=== PATIENT | female | born 1945 | race Caucasian/White ===

== ENCOUNTER 2023-10-10 09:28 | Inpatient (IN) | payer MEDICARE, SELFPAY ==
[2023-10-10] VITALS (32 sets, daily range): BP systolic 100–164; BP diastolic 54–94; PULSE 85–127; RESP 18–38; TEMP 36.1–36.3; O2SAT 95–100; BMI 18.1
--- NOTE | 2023-10-10 | ECHO_ITS ---
Patient Info Name: Rachna Alcazar Age: 77 years : 1945 Gender: Female Ht: 50 in Wt: 93 lbs BSA: 1.24 m2 HR: 89 bpm BP: 126 / 57 mmHg Heart Rhythm: Sinus Rhythm Technical Quality: Fair Exam Date: 10/10/2023 2:47 PM Exam Location: Echo Lab Patient Status: Outpatient Admit Date: 10/10/2023 Staff Ordering Physician: Kate Delgadillo APRN Institutional Commodity Analyst: Ann Roca RDCS Attending Provider: Iza Mccloud MD Referring Physician: Elie ALMANZAR; Exam Type: CA echo doppler color flow Study Info Indications - Elevated BNP Complete two-dimensional, color flow and Doppler transthoracic echocardiogram is performed. Summary 1. Technically difficult study with limited views. 2. Left ventricular chamber dimension is normal. 3. Left ventricular systolic function is hyperdynamic, estimated at >70%. 4. The left ventricular diastolic function is grade I diastolic dysfunction. 5. Right ventricular systolic function is normal. 6. Left atrial chamber dimension is moderately enlarged. 7. There is trace mitral valve regurgitation. 8. There is trace tricuspid valve regurgitation. Left Ventricle Left ventricular chamber dimension is normal. Left ventricular systolic function is hyperdynamic, estimated at >70%. The left ventricular diastolic function is grade I diastolic dysfunction. Right Ventricle Right ventricular chamber dimension is normal. Right ventricular systolic function is normal. Left Atria Left atrial chamber dimension is moderately enlarged. Right Atria Right atrial chamber dimension is normal. Aortic Valve The aortic valve is not well visualized. There is no aortic valve stenosis. There is no aortic valve regurgitation. Pulmonic Valve The pulmonic valve is not well visualized. Mitral Valve There is trace mitral valve regurgitation. The mitral valve annulus is severely calcified. Tricuspid Valve There is trace tricuspid valve regurgitation. Pericardium/Pleural There is no pericardial effusion. Inferior Vena Cava Normal inferior vena cava with >50% collapse upon inspiration consistent with normal right atrial pressure, 3 mmHg. Aorta The aortic root size at the sinus of Valsalva is not well visualized. Tricuspid Valve Name Value Normal Estimated PAP/RSVP RA Pressure 3 mmHg <=5 Report Signatures
--- NOTE | ~2023-10-10 | US_ITS ---
EXAMINATION: US abdomen complete DATE: 10/12/2023 08:17 INDICATION: Hepatosplenomegaly TECHNIQUE: Multiple grayscale and Doppler ultrasound images of the abdomen were obtained. COMPARISON: None FINDINGS: The pancreatic head and body are normal in appearance. The pancreatic tail is not visualized. The pr oximal to mid aorta and inferior vena cava are normal. Liver has normal echogenicity and contour, wit h a smooth surface. No liver lesion identified. No intrahepatic biliary duct dilation suspected. Port al venous flow was seen in the hepatopetal, normal direction and has normal Doppler waveform. There i s a shadowing gallstone within the normal-appearing gallbladder. The common bile duct measures 4 mm, which is normal. Sonographic Valenzuela sign was reported as negative by the arnp. There is normal renal contour and echogenicity bilaterally. The right kidney measures 9.5 x 3.2 x 3.8 cm and the lef t 9.1 x 3.4 x 4.3 cm. There is diffuse increased echogenicity at both kidneys which can be seen with medical renal disease. 2.0 cm anechoic right renal cyst. There is no hydronephrosis. There are few p unctate calcifications likely sequela of old granulomatous disease within the normal sized spleen whi ch measures 10.2 cm in maximal length. IMPRESSION: 1. Cholelithiasis. 2. Diffuse increased parenchymal echogenicity at both kidneys which can be seen with medical renal di sease. Reviewed, dictated and finalized at location A. IMPRESSION: 1. Cholelithiasis. 2. Diffuse increased parenchymal echogenicity at both kidneys which can be seen with medical renal disease.
--- NOTE | ~2023-10-10 | XR_ITS ---
EXAMINATION: XR chest 1V portable DATE: 10/10/2023 10:22 INDICATION: Shortness of breath TECHNIQUE: frontal view of the chest was obtained. COMPARISON: None FINDINGS: Asymmetric left-sided predominant diffuse increased interstitial pattern throughout both lungs. In ad dition there are some patchy groundglass opacities in the perihilar and lower left lung. No pleural e ffusion or pneumothorax. Heart size is normal. Calcified right hilar and mediastinal lymph nodes cons istent with old granulomatous disease. Lower thoracic vertebroplasty. Thoracolumbar levocurvature wit h severe spondylosis. IMPRESSION: 1. Left-sided predominant diffuse increased interstitial pattern with some additional patchy groundgl ass opacities in the left lung which could represent asymmetric pulmonary edema and/or pneumonia. Reviewed, dictated and finalized at location A. IMPRESSION: 1. Left-sided predominant diffuse increased interstitial pattern with some rowena tional patchy groundglass opacities in the left lung which could represent asym metric pulmonary edema and/or pneumonia.
--- NOTE | 2023-10-10 09:32 | ED.SOB ---
HPI - SOB/Dyspnea General Chief Complaint: Shortness of Breath/Dyspnea Stated Complaint: SOB,ON CPAP Time Seen by Provider: 10/10/23 09:30 History of Present Illness HPI Narrative: 77-year-old female presents to the emergency department for evaluation for worsening shortness breath. Patient does have history of COPD. Patient was complaining of increased shortness of breath this morning. Patient was found to be in respiratory distress and hypoxic at the [facility]. Patient was placed on 5 L by a non-rebreather but was still having poor saturations. Patient was placed on CPAP by EMS and transported to [facility]. Upon arrival emergency department patient was alert after being on CPAP. Patient was transitioned to BiPAP. Related Data Home Medications Medication Instructions Recorded Confirmed aspirin 81 mg chewable tablet 81 mg PO DAILY 10/10/23 10/10/23 (Monserrat Chewable Low Dose Aspirin) atorvastatin 40 mg tablet 40 mg PO DAILY 10/10/23 10/10/23 famotidine 20 mg tablet 20 mg PO DAILY 10/10/23 10/10/23 fluticasone fur. 100 mcg-umeclid inhalation 10/10/23 62.5 mcg-vilant 25 mcg inhalat.powder (Trelegy Ellipta) folic acid 1 mg tablet 1 mg PO DAILY 10/10/23 10/10/23 lisinopril 40 mg tablet 40 mg PO DAILY 10/10/23 10/10/23 melatonin 5 mg tablet 5 mg PO HS 10/10/23 10/10/23 naloxegol 25 mg tablet (Movantik) 25 mg PO QAM 10/10/23 10/10/23 pantoprazole 40 mg tablet,delayed 40 mg PO BID 10/10/23 10/10/23 release polyethylene glycol 3350 17 17 g PO DAILY 10/10/23 10/10/23 gram/dose oral powder (Miralax) tizanidine 2 mg tablet 2 mg PO DAILY 10/10/23 10/10/23 tramadol 50 mg tablet 50 mg PO Q6H 10/10/23 10/10/23 Allergies Allergy/AdvReac Type Severity Reaction Status Date / Time hydrocodone Allergy Unknown Verified 10/10/23 09:50 Review of Systems Review of Systems: All systems reviewed & are unremarkable except as noted in HPI and below PMFSH Past Medical History Medical History (Updated 10/10/23 @ 17:57 by Kate Delgadillo APRN) Anemia COPD (chronic obstructive pulmonary disease) Former smoker GERD (gastroesophageal reflux disease) HTN (hypertension) Insomnia Rheumatoid arthritis Exam Narrative: APPEARANCE: Well appearing, no pain, no distress, well-nourished. HEAD: normocephalic, atraumatic. EYES: PERRLA/EOMI, conjunctivae clear. NOSE: Normal no drainage EARS:TMS clear with good light reflex. THROAT: Pharynx clear, no exudate. NECK: Supple. No adenopathy, no masses. RESPIRATORY: Rhonchi and wheeze bilaterally CARDIOVASCULAR: Regular rate and rhythm without murmurs rubs or gallops. ABDOMINAL: Soft, nontender, nondistended, normal bowel sounds MUSCULOSKELETAL: Moves all extremities. Strength/ROM intact, No edema, No calf tenderness. NEURO: Alert. Cranial nerves II through XII intact. Grossly intact SKIN: Warm, dry. Normal Color Hemoccult negative on the digital rectal exam Course Course Emergency Course: Patient was admitted to IMU on BiPAP and treated for pneumonia. Vital Signs Vital signs: Vital Signs Temperature 97.4 F L 10/10/23 09:25 Pulse Rate 127 H 10/10/23 09:25 Respiratory Rate 30 H 10/10/23 09:25 Blood Pressure 152/94 H 10/10/23 09:25 Pulse Oximetry 95 10/10/23 09:25 Oxygen Delivery BiPAP 10/10/23 09:25 Oxygen Flow Rate 5 10/10/23 09:25 Fraction of Inspired Oxygen 50 10/10/23 09:25 Temperature 97.4 F L 10/10/23 09:25 Pulse Rate 104 H 10/10/23 16:39 Respiratory Rate 29 H 10/10/23 16:06 Blood Pressure 115/75 10/10/23 16:39 Pulse Oximetry 97 10/10/23 16:06 Oxygen Delivery BiPAP 10/10/23 16:06 Oxygen Flow Rate 5 10/10/23 09:30 Fraction of Inspired Oxygen 35 10/10/23 14:01 MDM - SOB/Dyspnea MDM Narrative Medical decision making narrative: 69-year-old female presented emergency department for evaluation of worsening shortness of breath. X-rays concerning for pulmonary edema and for pneumonia. Patient is afebril
[2023-10-10 09:57] LABS: Alveolar/Arterial O2 Gradient 239.3 mmHg; Base Excess ABG -8.7 mEq/l (+/-2.0); Device NON-INVASIVE VENT; Fractional Inspired Oxygen 50 %; Modified Allen's Test Pass; Non-Invasive Expiratory Pressure 7 CMH2O; Non-Invasive Inspiratory Pressure 14 CMH2O; Non-Invasive Vent Rate 14 /MIN; Oxygen Content ABG 12.3 %vol (16.0-22.0); Oxygen Saturation ABG 95.9 % (95.0-100.0); Oxyhemoglobin 94.2 % THb (90.0-100.0); PO2 ABG 83.5 mmHg (80.0-100.0); PO2 FiO2 Ratio Arterial Blood 1.67 %; Site Drawn RIGHT RADIAL; Total Hemoglobin 9.2 g/dL (12.0-18.0); pH ABG 7.345 (7.350-7.450)
[2023-10-10 11:00] LABS: Basophils Percent Auto 0.1 % (0.2-1.2); Hematocrit 22.7 % (37.0-47.0); Hemoglobin 7.2 g/dL (12.0-15.0); Immature Granulocyte Absolute 0.07 K/mm3 (0.00-0.031); Immature Granulocyte Percent A 0.9 % (0-0.5); Immature Platelet Fraction Pct 9.7 % (0.9-11.2); Lymphocytes Absolute Auto 0.47 K/mm3 (0.9-3.2); Mean Corpuscular HGB Conc 31.7 g/dl (32-36); Mean Corpuscular Hemoglobin 29.9 pg (26-34); Mean Corpuscular Volume 94.2 fl (80-100); Mean Platelet Volume 11.6 fl (7.4-10.4); Monocytes Absolute Auto 0.4 K/mm3 (0.1-0.6); Monocytes Percent Auto 5.5 % (2.6-8.5); Neutrophils Absolute Auto 6.9 K/mm3 (1.3-6.7); Neutrophils Percent Auto 87.5 % (45.5-73.1); Red Blood Count 2.41 M/mm3 (4.2-5.4); Red Cell Distribution Width 15.4 % (11.5-14.5); White Blood Count 7.8 K/mm3 (4.5-10.0)
[2023-10-10 11:04] LABS: Alanine Aminotransferase 10 U/L (6-35); Albumin Level 4.2 g/dL (3.5-5.1); Alkaline Phosphatase 111 U/L (38-126); Anion Gap 13 mmol/L (4-12); Aspartate Amino Transferase 16 U/L (14-36); Bilirubin,Total 0.7 mg/dL (0.2-1.3); Blood Urea Nitrogen 21 mg/dL (7-17); Calcium 8.3 mg/dL (8.4-10.2); Carbon Dioxide 18 mmol/L (22-30); Chloride 107 mmol/L (98-107); Estimated Glomerular Filt Rate 36; Glucose 194 mg/dL (65-110); Potassium 3.7 mmol/L (3.4-5.0); Sodium 138 mmol/L (137-145)
[2023-10-10 11:05] LABS: Lactic Acid Reflex 2.9 mmol/L (0.7-2.0)
[2023-10-10 11:07] LABS: Partial Thromboplastin Time 26.5 Seconds (22.3-36.8); Prothrombin Time 13.9 Seconds (11.1-14.7)
[2023-10-10 11:12] LABS: NT Pro B Type Natriuretic Pept 3470 pg/mL (19.9-100)
[2023-10-10] MEDS: AZITHROMYCIN 500 MG/NS 250 ML 500 MG/250 ML BAG 250 MG IVPB (11:19)
[2023-10-10 11:24] LABS: Appearance Urine Clear (Clear); Bacteria Urine None Seen /hpf; Bilirubin Urine Negative (Negative); Blood Urine 1+ (Negative); Color Urine Yellow (Yellow); Glucose Urine UA Negative (Negative); Ketones Urine Negative (Negative); Leukocyte Esterase Ur Trace LEU/UL (Negative); Need Manual Microscopic Reviewed; Nitrate Urine Negative (Negative); Protein Urine 3+ mg/dL (Negative); Specific Grav Ur 1.018 (1.001-1.035); Squamous Epithelial Cell Urine None Seen /hpf (Few); pH Urine 5.5 (5.0-9.0)
[2023-10-10 11:26] LABS: Add Urine Microscopic? YES
[2023-10-10 11:44] LABS: Platelet Count Result 69 k/mm3 (150-375)
[2023-10-10 11:45] LABS: Platelet Estimate Decreased (Adequate)
[2023-10-10 11:46] LABS: Helmet Cells 1+; Hypochromasia 1+; Poikilocytosis 1+; Schistocytes 1+
--- NOTE | 2023-10-10 12:50 | PM.IMHP ---
H&P: HPI History of Present Illness Date/Time: 10/10/23 16:53 Chief Complaint: Shortness of Breath, Hypoxia Narrative: 77 y/o F presents here with shortness of breath and hypoxia with PMH of COPD (recent dx in the last year), former smoker (cessation 1 year ago), anemia (getting weekly injections, unclear what), RA, insomnia, GERD, and HTN. Patient presents here via EMS from [facility] with shortness of breath. Has been at [facility] for the past 2 weeks after she broke her left hip, which required surgical management. Prior to that she was at [facility] for the past year. Patient began feeling short of breath this morning. She had just finished breakfast and went to lay down when she started coughing, experiencing chest congestion, and then became acutely short of breath. Cough was productive. Reports she has been feelings generally unwell starting today without specific findings until episode after breakfast. Patient reports her morning vitals were normal and her sat was 95% on RA. No prior history of supplemental O2 or sleep apnea. EMS was called and upon their arrival patient was found to have a sat in the 70's. Patient was placed on a NRB without improvement. Then transitioned to CPAP with improvement in distress and O2 sats - 90's. Patient exchanged to BiPAP upon arrival to ED and sat has maintained between 95-99%. Patient endorses rhinorrhea, cough, shortness of breath and chest congestion. Denying chest pain, palpitations, fever, body aches, or chills. Initial VS at presentation: 97.4? F, HR 127, RR 30, 152/94, and 95% on BiPAP. ED workup showed: no leukocytosis, hemoglobin 7.2, platelet count 69, creatinine 1.4, gap 13, lactic 2.9, BNP 3470. UA equivocal. CXR showed left-sided predominant diffuse interstitial pattern with some additional patchy ground-glass opacities in left lung (edema v pna). Review of Systems Review of Systems: All systems reviewed & are unremarkable except as noted in HPI and below PMFSH Past Medical History Medical History (Updated 10/10/23 @ 17:57 by Kate Delgadillo, STACIA) Anemia COPD (chronic obstructive pulmonary disease) Former smoker GERD (gastroesophageal reflux disease) HTN (hypertension) Insomnia Rheumatoid arthritis Meds Home Medications and Allergies Home Medications Medication Instructions Recorded Confirmed Type aspirin 81 mg chewable tablet 81 mg PO DAILY 10/10/23 10/10/23 History (Monserrat Chewable Low Dose Aspirin) atorvastatin 40 mg tablet 40 mg PO DAILY 10/10/23 10/10/23 History famotidine 20 mg tablet 20 mg PO DAILY 10/10/23 10/10/23 History fluticasone fur. 100 mcg-umeclid inhalation 10/10/23 History 62.5 mcg-vilant 25 mcg inhalat.powder (Trelegy Ellipta) folic acid 1 mg tablet 1 mg PO DAILY 10/10/23 10/10/23 History lisinopril 40 mg tablet 40 mg PO DAILY 10/10/23 10/10/23 History melatonin 5 mg tablet 5 mg PO HS 10/10/23 10/10/23 History naloxegol 25 mg tablet (Movantik) 25 mg PO QAM 10/10/23 10/10/23 History pantoprazole 40 mg tablet,delayed 40 mg PO BID 10/10/23 10/10/23 History release polyethylene glycol 3350 17 17 g PO DAILY 10/10/23 10/10/23 History gram/dose oral powder (Miralax) tizanidine 2 mg tablet 2 mg PO DAILY 10/10/23 10/10/23 History tramadol 50 mg tablet 50 mg PO Q6H 10/10/23 10/10/23 History Allergies Allergy/AdvReac Type Severity Reaction Status Date / Time hydrocodone Allergy Unknown Verified 10/10/23 09:50 Vital Signs Vital Signs - 24 hr 10/10/23 09:25 10/10/23 09:51 10/10/23 09:30 Temperature 97.4 F L Pulse Rate 127 H 111 H Respiratory Rate 30 H 27 H Blood Pressure 152/94 H Pulse Oximetry 95 98 98 Oxygen Delivery BiPAP BiPAP BiPAP Oxygen Flow Rate 5 5 Fraction of Inspired Oxygen 50 50 10/10/23 10:04 10/10/23 10:37 10/10/23 11:01 Temperature Pulse Rate 103 H 99 95 Respiratory Rate 24 H 29 H 24 H Blood Pressure 128/74 106/63 100/54 L Pulse Oximetry 99 98 98 Oxygen Delivery Oxygen F
[2023-10-10 13:35] LABS: Procalcitonin 0.1 ng/mL
[2023-10-10 13:51] LABS: Reflex Lactic Acid Yes or No Add Lactic
[2023-10-10] MEDS: ALBUTEROL SULFATE NEB 2.5 MG/3 ML INH INHALATION (14:31)
[2023-10-10 14:38] LABS: MRSA (PCR) NOT DETECTED (NOT DETECTE)
[2023-10-10 16:48] LABS: Lactic Acid 1.5 mmol/L (0.7-2.0)
[2023-10-10 16:55] LABS: Iron 52 ug/dL (37-170)
[2023-10-10 17:04] LABS: Percent Iron Saturation 28 % (20-50)
[2023-10-10 18:02] LABS: Folic Acid > 20.0 ng/mL (2.76->20)
[2023-10-10] MEDS: predniSONE 20 MG TABLET 40 MG PO (19:00)
[2023-10-10] MEDS: traMADol HCL (*CRX) 50 MG TABLET PO ×2 (19:00→23:24)
[2023-10-10] MEDS: IPRATROPIUM 0.5 MG/ALBUTEROL SULFATE 2.5 MG AMPUL.NEB 3 ML INHALATION (20:09)
[2023-10-10] MEDS: FLUTICASONE PROP 110 MCG INHALER 12 GM (*SP) 2 PUFF INHALATION (20:09)
[2023-10-10] MEDS: MELATONIN 5 MG TABLET PO (20:56)
[2023-10-10] MEDS: LACTATED RINGERS 1,000 ML 100 ML (23:33)
[2023-10-11] VITALS (26 sets, daily range): BP systolic 80–175; BP diastolic 44–97; PULSE 78–104; RESP 16–22; TEMP 36.1–37.2; O2SAT 95–100; BMI 19.2
[2023-10-11] MEDS: IPRATROPIUM 0.5 MG/ALBUTEROL SULFATE 2.5 MG AMPUL.NEB 3 ML INHALATION ×4 (02:11→20:48)
[2023-10-11 05:01] LABS: Immature Granulocyte Absolute 0.02 K/mm3 (0.00-0.031); Immature Granulocyte Percent A 0.9 % (0-0.5); Immature Platelet Fraction Pct 8.2 % (0.9-11.2); Lymphocytes Absolute Auto 0.28 K/mm3 (0.9-3.2); Lymphocytes Percent Auto 13.1 % (18.3-44.2); Mean Corpuscular HGB Conc 31.5 g/dl (32-36); Mean Corpuscular Hemoglobin 29.7 pg (26-34); Mean Corpuscular Volume 94.3 fl (80-100); Mean Platelet Volume 12.9 fl (7.4-10.4); Monocytes Absolute Auto 0.1 K/mm3 (0.1-0.6); Monocytes Percent Auto 4.7 % (2.6-8.5); Neutrophils Absolute Auto 1.7 K/mm3 (1.3-6.7); Neutrophils Percent Auto 81.3 % (45.5-73.1); Platelet Count Result 56 k/mm3 (150-375); Red Blood Count 2.09 M/mm3 (4.2-5.4); Red Cell Distribution Width 15.6 % (11.5-14.5); White Blood Count 2.1 K/mm3 (4.5-10.0)
[2023-10-11 05:16] LABS: Alanine Aminotransferase 11 U/L (6-35); Albumin Level 4.2 g/dL (3.5-5.1); Alkaline Phosphatase 105 U/L (38-126); Anion Gap 11 mmol/L (4-12); Aspartate Amino Transferase 17 U/L (14-36); Bilirubin,Total 0.6 mg/dL (0.2-1.3); Blood Urea Nitrogen 26 mg/dL (7-17); Calcium 8.7 mg/dL (8.4-10.2); Carbon Dioxide 17 mmol/L (22-30); Chloride 108 mmol/L (98-107); Estimated CRCL calculation 21 ml/min; Estimated Glomerular Filt Rate 36; Glucose 149 mg/dL (65-110); Potassium 3.9 mmol/L (3.4-5.0); Sodium 136 mmol/L (137-145)
[2023-10-11 05:35] LABS: Hemoglobin 6.2 g/dL (12.0-15.0)
[2023-10-11 05:36] LABS: Hematocrit 19.7 % (37.0-47.0); Platelet Estimate Decreased (Adequate)
[2023-10-11 05:37] LABS: Anisocytosis 2+; Burr Cells 2+; Hypochromasia 1+; Poikilocytosis 2+; Schistocytes 1+
[2023-10-11] MEDS: traMADol HCL (*CRX) 50 MG TABLET PO ×3 (06:22→21:06)
[2023-10-11] MEDS: ASPIRIN 81 MG CHEWABLE TABLET PO (08:40)
[2023-10-11] MEDS: predniSONE 20 MG TABLET 40 MG PO (08:40)
[2023-10-11] MEDS: polyethylene glycoL 3350 17 GM POWD.PACK PO (08:40)
[2023-10-11] MEDS: PANTOPRAZOLE 40 MG TABLET PO ×2 (08:40→21:09)
[2023-10-11] MEDS: FOLIC ACID 1 MG TABLET PO (08:40)
[2023-10-11] MEDS: FAMOTIDINE 20 MG TABLET PO (08:40)
[2023-10-11] MEDS: ATORVASTATIN 40 MG TABLET PO (08:41)
[2023-10-11] MEDS: AZITHROMYCIN 500 MG/NS 250 ML 500 MG/250 ML BAG 250 MG IVPB (08:41)
[2023-10-11] MEDS: TIZANIDINE HCL 2 MG TABLET PO (08:41)
[2023-10-11] MEDS: lisinopriL 20 MG TABLET 40 MG PO (08:41)
--- NOTE | 2023-10-11 12:03 | PM.IMPN ---
Progress Note: A&P Assessment and Plan (1) Sepsis: Code(s): A41.9 - Sepsis, unspecified organism Status: Acute Assessment and Plan: - suspected source: PNA - started on ceftriaxone and azithromycin on 10/09 - blood cultures drawn on 10/09 - UA: 3+ protein, 1+ blood, trace leuks, 6-10 rbc's, 6-10 wbc's, no epithelial cells, no bacteria. UC obtained on 10/09. - CXR: ?Left-sided predominant diffuse increased interstitial pattern with some additional patchy groundglass opacities in the left lung which could represent asymmetric pulmonary edema and/or pneumonia. - on BIPAP (2) Shortness of breath: Code(s): R06.02 - Shortness of breath Status: Acute Assessment and Plan: - CXR showing pna v pulmonary edema - started on abx for CAP - on duonebs and BIPAP (3) Pneumonia: Code(s): J18.9 - Pneumonia, unspecified organism Status: Acute Assessment and Plan: - CXR: patchy groundglass opacities in the left lung - risk factors: resides at [facility], reviewed external med rec and no recent abx - complicating factors: COPD, former smoker, recent intubation in last month for surgical fixation of hip fx. - started on CAP tx: ceftriaxone and azithromycin on 10/09, if no improvement consider cefepime for HAP coverage. (4) Anemia: Code(s): D64.9 - Anemia, unspecified Status: Acute Assessment and Plan: - Hgb is 6 - tranfuse blood - GI and hematology consulted Subjective Date/time seen: 10/11/23 12:03 Interval history: 77 y/o F presents here with shortness of breath and hypoxia with PMH of COPD (recent dx in the last year), former smoker (cessation 1 year ago), anemia (getting weekly injections, unclear what), RA, insomnia, GERD, and HTN. Patient is severe anemic hb is 6 today ordered 3 units of blood GI and hematology consult Review of Systems Review of Systems: pale tired and weak Objective Data Vital Signs Vital Signs: Vital Signs - 24 hr 10/10/23 12:07 10/10/23 12:31 10/10/23 13:01 Temperature Pulse Rate 97 85 89 Respiratory Rate 24 H 20 20 Blood Pressure 108/61 126/57 L Pulse Oximetry 96 100 100 Oxygen Delivery BiPAP Oxygen Flow Rate Fraction of Inspired Oxygen 10/10/23 13:49 10/10/23 13:02 10/10/23 13:31 Temperature Pulse Rate 91 86 91 Respiratory Rate 29 H 20 20 Blood Pressure 124/57 L 136/61 Pulse Oximetry 98 100 97 Oxygen Delivery BiPAP Oxygen Flow Rate Fraction of Inspired Oxygen 10/10/23 14:01 10/10/23 14:15 10/10/23 14:33 Temperature Pulse Rate 93 96 Respiratory Rate 28 H 27 H Blood Pressure Pulse Oximetry 98 Oxygen Delivery BiPAP Oxygen Flow Rate Fraction of Inspired Oxygen 35 10/10/23 14:40 10/10/23 14:01 10/10/23 14:31 Temperature Pulse Rate 94 90 97 Respiratory Rate 22 H 22 H 22 H Blood Pressure 164/69 H 137/56 L 164/69 H Pulse Oximetry 97 100 100 Oxygen Delivery Oxygen Flow Rate Fraction of Inspired Oxygen 10/10/23 16:06 10/10/23 15:48 10/10/23 18:00 Temperature Pulse Rate 104 H 98 Respiratory Rate 29 H 38 H Blood Pressure 115/75 Pulse Oximetry 97 99 Oxygen Delivery BiPAP Oxygen Flow Rate Fraction of Inspired Oxygen 10/10/23 20:10 10/10/23 20:15 10/10/23 20:23 Temperature Pulse Rate 90 92 Respiratory Rate 18 20 Blood Pressure Pulse Oximetry 96 Oxygen Delivery Nasal Cannula Oxygen Flow Rate 2 Fraction of Inspired Oxygen 10/10/23 20:32 10/10/23 20:00 10/10/23 20:00 Temperature 36.1 C L Pulse Rate 105 H 96 Respiratory Rate 38 H Blood Pressure 114/90 Pulse Oximetry 99 99 Oxygen Delivery Nasal Cannula Oxygen Flow Rate 3 Fraction of Inspired Oxygen 10/10/23 22:00 10/10/23 23:12 10/10/23 23:58 Temperature 36.3 C L Pulse Rate 96 92 100 Respiratory Rate 26 H 38 H Blood Pressure 126/76 Pulse Oximetry 97 98 Oxygen Delivery BiPAP Oxygen Flow R
--- NOTE | 2023-10-11 12:59 | PCPTNOTE ---
Addendum entered by Yue Gandhi, PT 10/11/23 15:58: Per care coordination (who spoke with pt's current SNF), pt is TTWB on LLE. Original Note: Attempted PT evaluation, pt needs weight bearing status prior to PT evaluation.
--- NOTE | 2023-10-11 14:30 | PC.NURSE ---
This patient, Rachna Alcazar, was received from [ IMU ] on 10/11/23 at 1430. Patient/family oriented to unit policies and routines
--- NOTE | 2023-10-11 14:35 | PC.NURSE ---
This patient, Rachna Alcazar, was admitted to [facility] Surg Room 305-01. Patient/family oriented to hospital policies and general routines including ID bracelet, bed and alarms, visiting hours, pain management, procedures, bathroom and other care routines, personal items, smoking policy, room service/diet, and visiting hours. Information on how to activate the Rapid Response Team has been discussed. Patient/Family are encouraged to report perceived risks to care and to ask questions if they do not understand what they are told or what they should do.
--- NOTE | 2023-10-11 15:04 | WPDGICN ---
Assessment and Plan Assessment and plan (1) Acute on chronic anemia: Code(s): D64.9 - Anemia, unspecified Status: Acute Assessment and Plan: could be multifactorial but now requiring blood transfusion she is agreeable to have scopes (2) Pneumonia: Code(s): J18.9 - Pneumonia, unspecified organism Status: Acute Assessment and Plan: on treatment (3) Sepsis: Code(s): A41.9 - Sepsis, unspecified organism Status: Acute (4) COPD (chronic obstructive pulmonary disease): Code(s): J44.9 - Chronic obstructive pulmonary disease, unspecified Status: Acute (5) Thrombocytopenia: Code(s): D69.6 - Thrombocytopenia, unspecified Status: Acute Assessment and Plan: will monitor (6) Rheumatoid arthritis: Code(s): M06.9 - Rheumatoid arthritis, unspecified Status: Acute GI Consult Note Consult date/time: 10/11/23 15:04 Reason for consult: anemia HPI: Rachna Alcazar is a 77 year old female with history of copd, she is in a fdc and had hip fracture, also known anemia for which she has seeing hematology at another hospital. She says that last time had scopes years ago. Admitted here after she was found to have more dyspnea at the [facility], given oxygen, CXR possible pneumonia, started on antibiotics, ppi and steroids. She is admitted with diagnosis of sepsis. hgb 6.2, platelets 60 but no overt gib, she is getting blood transfusion. Review of Systems Constitutional: Constitutional: Reports fatigue Eyes: Eyes: Denies blurry vision ENT: Reports Normal hearing present Cardiovascular: Cardiovascular: Denies chest pain Respiratory: Respiratory: Reports dyspnea on exertion Gastrointestinal: Gastrointestinal: Denies abdominal pain Musculoskeletal: Comments: h/o hip fracture, deformity hands Integumentary/Breasts: Skin/Breast: Reports rash Neurologic: Denies confusion Psychiatric: Psychiatric: Denies behavioral changes [facility] Past Medical History Medical History (Updated 10/11/23 @ 15:11 by Negro Salas MD) Acute on chronic anemia Anemia COPD (chronic obstructive pulmonary disease) Former smoker GERD (gastroesophageal reflux disease) HTN (hypertension) Insomnia Rheumatoid arthritis Thrombocytopenia Social History Social History Smoking status: Former smoker Smoking end date: 05/28/19 Alcohol intake: never Substance use: never Do You Feel Safe in your Home?: Yes Lack of Transportation: No Lack of Food: Never True Current Housing: I Have Housing Concerned About Future Housing: No Difficulty Paying Gas/Electric Bills: No Difficulty Paying for Meds: No Currently Unemployed: No Education: High School Diploma/GED Difficulty w/ Childcare or Family Care: No Spiritual care concerns: No Meds Home Medications and Allergies Home Medications Medication Instructions Recorded Confirmed Type aspirin 81 mg chewable tablet 81 mg PO DAILY 10/10/23 10/10/23 History (Monserrat Chewable Low Dose Aspirin) atorvastatin 40 mg tablet 40 mg PO DAILY 10/10/23 10/10/23 History famotidine 20 mg tablet 20 mg PO DAILY 10/10/23 10/10/23 History fluticasone fur. 100 mcg-umeclid inhalation 10/10/23 History 62.5 mcg-vilant 25 mcg inhalat.powder (Trelegy Ellipta) folic acid 1 mg tablet 1 mg PO DAILY 10/10/23 10/10/23 History lisinopril 40 mg tablet 40 mg PO DAILY 10/10/23 10/10/23 History melatonin 5 mg tablet 5 mg PO HS 10/10/23 10/10/23 History naloxegol 25 mg tablet (Movantik) 25 mg PO QAM 10/10/23 10/10/23 History pantoprazole 40 mg tablet,delayed 40 mg PO BID 10/10/23 10/10/23 History release polyethylene glycol 3350 17 17 g PO DAILY 10/10/23 10/10/23 History gram/dose oral powder (Miralax) tizanidine 2 mg tablet 2 mg PO DAILY 10/10/23 10/10/23 History tramadol 50 mg tablet 50 mg PO Q6H 10/10/23 10/10/23 History Allergies Allergy/AdvReac Type Severity
--- NOTE | 2023-10-11 17:44 | PDONCCN ---
HPI - Date of Consult Date/Time: 10/11/23 17:44 Requesting Physician: Iza Mccloud MD Primary Care Provider: UNKNOWN,DOCTOR - Consult Narrative Reason for consult: Pancytopenia Narrative: Rachna Alcazar is a 77 year old female with history of rheumatoid arthritis, hypertension, anemia and GERD admitted to the hospital from [facility] with increasing shortness of breath. Currently she is not on any treatment for rheumatoid arthritis. On admission patient had hemoglobin of 7.2 [place] [address]. Chest x-ray showed diffuse interstitial pattern and ground-glass opacity in the lung concerning for pneumonia versus edema. She denies any history of liver disease. Denies any previous history of malignancy. Denies any melena hematochezia. She was started on antibiotic for pneumonia. Currently she is on azithromycin and Rocephin. Patient received 1 unit of packed red blood cells. Other labs showed creatinine of 1.4 with GFR of 36. Vitamin B12 came back normal at 885 and iron was also normal at 52 with iron saturation of 28%. Ferritin was elevated at 1320. She has occasional nosebleed. Review of Systems - Review of Systems All systems reviewed & are unremarkable except as noted in HPI and bel - Neurologic Reports hearing normal, Denies behavioral changes, Denies confusion [facility] Medical History: Medical History (Last Updated 10/11/23 @ 15:11 by Negro Salas MD) Acute on chronic anemia Anemia COPD (chronic obstructive pulmonary disease) Former smoker GERD (gastroesophageal reflux disease) HTN (hypertension) Insomnia Rheumatoid arthritis Thrombocytopenia - Social History Social History: Social History Alcohol Use: Alcohol intake: former Substance Use: Substance use: never Others: Spiritual care concerns: No Smoking Status: Smoking status: Former smoker Smoking end date: 05/28/19 Approximate Smoking End Date: 05/28/1969 Social Determinants of Health: Do You Feel Safe in your Home?: Yes Has the Lack of Transportation Kept You From Medical Appointments or From Getting Medications?: No Within the Past 12 Months, Were You Worried Whether Your Food Would Run Out Before You Got Money to Buy More?: Never True What is Your Housing Situation Today?: I Have Housing Are You Worried That in the Next 2 Months, You May Not Have Your Own Housing to Live In?: No Do You Have Trouble Paying Your Heating Or Electricity Bill?: No Do You Have Trouble Paying For Medicines?: No Are You Currently Unemployed and Looking for Work?: No Highest Level of Education Completed: Decline to Answer Do You Have Trouble With Childcare or the Care of a Family Member?: No Exam - Vital Signs Vital Signs - 24 hr 10/10/23 18:00 10/10/23 20:10 10/10/23 20:15 Temperature Pulse Rate 98 90 Respiratory Rate 18 Blood Pressure Pulse Oximetry 96 Oxygen Delivery Nasal Cannula Oxygen Flow Rate 2 Fraction of Inspired Oxygen 10/10/23 20:23 10/10/23 20:32 10/10/23 20:00 Temperature 36.1 C L Pulse Rate 92 105 H Respiratory Rate 20 38 H Blood Pressure 114/90 Pulse Oximetry 99 99 Oxygen Delivery Nasal Cannula Oxygen Flow Rate 3 Fraction of Inspired Oxygen 10/10/23 20:00 10/10/23 22:00 10/10/23 23:12 Temperature Pulse Rate 96 96 92 Respiratory Rate 26 H Blood Pressure Pulse Oximetry 97 Oxygen Delivery BiPAP Oxygen Flow Rate Fraction of Inspired Oxygen 10/10/23 23:58 10/11/23 00:00 10/11/23 00:00 Temperature 36.3 C L Pulse Rate 100 94 Respiratory Rate 38 H Blood Pressure 126/76 Pulse Oximetry 98 98 Oxygen Delivery High Flow Nasal Cannula Oxygen Flow Rate 3 Fraction of Inspired Oxygen 10/11/23 02:00 10/11/23 02:12 10/11/23 02:26 Temperature Pulse Rate 89 88 82 Respiratory Rate 20 20 Blood Pressure Pulse Oximetry Oxygen Delivery
--- NOTE | 2023-10-11 18:54 | PC.NURSE ---
[facility] was called because we don't have gatorade on the floor for pts bowel prep
[2023-10-11 19:24] LABS: Hematocrit 22.8 % (37.0-47.0); Hemoglobin 7.7 g/dL (12.0-15.0)
[2023-10-11] MEDS: FLUTICASONE PROP 110 MCG INHALER 12 GM (*SP) 2 PUFF INHALATION (20:58)
[2023-10-11] MEDS: polyethylene glycoL 3350 238 GM BOTTLE PO (21:00)
[2023-10-11] MEDS: EPOETIN ALFA-EPBX 20,000 UNITS/ML VIAL 20000 UNITS SUB-Q (21:03)
[2023-10-11] MEDS: TUBING, BLOOD PLUM PUMP TUBING 1 EACH XX (21:06)
[2023-10-11] MEDS: MELATONIN 5 MG TABLET PO (21:09)
[2023-10-11] MEDS: BISACODYL 5 MG TABLET EC 20 MG PO (21:20)
[2023-10-12] VITALS (17 sets, daily range): BP systolic 107–167; BP diastolic 52–91; PULSE 60–89; RESP 16–26; TEMP 36.4–36.9; O2SAT 94–100; BMI 19.6
[2023-10-12] MEDS: IPRATROPIUM 0.5 MG/ALBUTEROL SULFATE 2.5 MG AMPUL.NEB 3 ML INHALATION ×4 (02:35→20:00)
[2023-10-12] MEDS: traMADol HCL (*CRX) 50 MG TABLET PO ×4 (05:59→21:32)
[2023-10-12] MEDS: FLUTICASONE PROP 110 MCG INHALER 12 GM (*SP) 2 PUFF INHALATION ×2 (06:59→20:00)
[2023-10-12 07:03] LABS: Hematocrit 30.8 % (37.0-47.0); Hemoglobin 10.1 g/dL (12.0-15.0); Immature Platelet Fraction Pct 12.3 % (0.9-11.2); Mean Corpuscular HGB Conc 32.8 g/dl (32-36); Mean Corpuscular Hemoglobin 29.5 pg (26-34); Mean Corpuscular Volume 90.1 fl (80-100); Platelet Count Result 57 k/mm3 (150-375); Red Blood Count 3.42 M/mm3 (4.2-5.4); Red Cell Distribution Width 14.6 % (11.5-14.5); White Blood Count 4.7 K/mm3 (4.5-10.0)
--- NOTE | 2023-10-12 07:55 | PC.NURSE ---
Pt off the floor for EGD/Colonoscopy
[2023-10-12] MEDS: LACTATED RINGERS 1,000 ML 150 ML IV CONT (08:30)
--- NOTE | 2023-10-12 08:54 | WPDANESEPPF ---
Anes - Initial Pre Proc Eval Procedure: Operation Date: 10/12/23 14:30 Proposed Procedures p Esophagogastroduodenoscopy & Colonoscopy - Negro Salas MD Date/Time: 10/12/23 08:54 Surgeon: Iza Mccloud MD Pre Op Diagnosis: copd,pneumonia,hypoxia Patient Data Age: 77 Gender: F Height: 1.52 m Weight: 45.7 kg Last Vital Signs Temp 97.8 F 10/12/23 08:28 Pulse 85 10/12/23 08:28 Resp 20 10/12/23 08:28 BP 140/52 L 10/12/23 08:28 Pulse Ox 100 10/12/23 08:28 O2 Del Method Nasal Cannula 10/12/23 08:28 O2 Flow Rate 3 10/12/23 08:28 FiO2 35 10/11/23 20:00 Allergies Allergy/AdvReac Type Severity Reaction Status Date / Time hydrocodone Allergy Unknown Verified 10/10/23 09:50 Home Medications Medication Instructions Recorded Confirmed Type aspirin 81 mg chewable tablet 81 mg PO DAILY 10/10/23 10/10/23 History (Monserrat Chewable Low Dose Aspirin) atorvastatin 40 mg tablet 40 mg PO DAILY 10/10/23 10/10/23 History famotidine 20 mg tablet 20 mg PO DAILY 10/10/23 10/10/23 History fluticasone fur. 100 mcg-umeclid inhalation 10/10/23 History 62.5 mcg-vilant 25 mcg inhalat.powder (Trelegy Ellipta) folic acid 1 mg tablet 1 mg PO DAILY 10/10/23 10/10/23 History lisinopril 40 mg tablet 40 mg PO DAILY 10/10/23 10/10/23 History melatonin 5 mg tablet 5 mg PO HS 10/10/23 10/10/23 History naloxegol 25 mg tablet (Movantik) 25 mg PO QAM 10/10/23 10/10/23 History pantoprazole 40 mg tablet,delayed 40 mg PO BID 10/10/23 10/10/23 History release polyethylene glycol 3350 17 17 g PO DAILY 10/10/23 10/10/23 History gram/dose oral powder (Miralax) tizanidine 2 mg tablet 2 mg PO DAILY 10/10/23 10/10/23 History tramadol 50 mg tablet 50 mg PO Q6H 10/10/23 10/10/23 History Laboratory Tests 10/11/23 10/11/23 10/11/23 06:02 18:11 19:18 WBC RBC Hgb 7.7 L g/dL (12.0-15.0) Hct 22.8 L % (37.0-47.0) MCV MCH MCHC RDW Plt Count MPV % Immature Plt Fraction Direct Plt-Bound IgG Ab Pending Blood Type A Positive Antibody Screen Negative Crossmatch See Detail 10/12/23 06:27 WBC 4.7 K/mm3 (4.5-10.0) RBC 3.42 L M/mm3 (4.2-5.4) Hgb 10.1 L g/dL (12.0-15.0) Hct 30.8 L % (37.0-47.0) MCV 90.1 fl (80-100) MCH 29.5 pg (26-34) MCHC 32.8 g/dl (32-36) RDW 14.6 H % (11.5-14.5) Plt Count 57 L k/mm3 (150-375) MPV TNP % Immature Plt Fraction 12.3 H % (0.9-11.2) Direct Plt-Bound IgG Ab Blood Type Antibody Screen Crossmatch Patient hx anesthesia problems: none Family hx anesthesia problems: none Results Review: All pre-operative results and documents have been reviewed as part of the pre-operative evaluation. [facility] Past Medical History Medical History (Updated 10/11/23 @ 17:53 by Baudilio Calix MD) Acute on chronic anemia Anemia COPD (chronic obstructive pulmonary disease) Former smoker GERD (gastroesophageal reflux disease) HTN (hypertension) Insomnia Rheumatoid arthritis Thrombocytopenia Social History Social History Smoking status: Former smoker Smoking end date: 05/28/19 Alcohol intake: former Substance use: never Do You Feel Safe in your Home?: Yes Lack of Transportation: No Lack of Food: Never True Current Housing: I Have Housing Concerned About Future Housing: No Difficulty Paying Gas/Electric Bills: No Difficulty Paying for Meds: No Currently Unemployed: No Education: Decline to Answer Difficulty w/ Childcare or Family Care: No Spiritual care concerns: No Anes - Eval Final PreProcedure Day of Procedure 10/12/23 08:54 Patient weight: thin Heart: regular rate and rhythm Lungs: clear to auscultation Airway: Mallampati scale class III Neurological
--- NOTE | 2023-10-12 10:30 | PC.NURSE ---
Pt has returned back to floor morning meds will be given
[2023-10-12] MEDS: predniSONE 20 MG TABLET 40 MG PO (11:11)
[2023-10-12] MEDS: FAMOTIDINE 20 MG TABLET PO (11:12)
[2023-10-12] MEDS: lisinopriL 20 MG TABLET 40 MG PO (11:12)
[2023-10-12] MEDS: TIZANIDINE HCL 2 MG TABLET PO (11:12)
[2023-10-12] MEDS: PANTOPRAZOLE 40 MG TABLET PO ×2 (11:12→21:33)
[2023-10-12] MEDS: ASPIRIN 81 MG CHEWABLE TABLET PO (11:12)
[2023-10-12] MEDS: polyethylene glycoL 3350 17 GM POWD.PACK PO (11:13)
[2023-10-12] MEDS: FOLIC ACID 1 MG TABLET PO (11:13)
[2023-10-12] MEDS: ATORVASTATIN 40 MG TABLET PO (11:15)
[2023-10-12] MEDS: AZITHROMYCIN 500 MG/NS 250 ML 500 MG/250 ML BAG 250 MG IVPB (11:16)
--- NOTE | 2023-10-12 12:58 | PM.IMPN ---
Progress Note: A&P Assessment and Plan (1) Sepsis: Code(s): A41.9 - Sepsis, unspecified organism Status: Acute (2) Shortness of breath: Code(s): R06.02 - Shortness of breath Status: Acute (3) Pneumonia: Code(s): J18.9 - Pneumonia, unspecified organism Status: Acute (4) Anemia: Code(s): D64.9 - Anemia, unspecified Status: Acute Plan 69-year-old female presents to the ED for worsening shortness of breath. Patient has history of COPD. Found to be in respiratory distress and hypoxia the nursing facility. Placed on 5 L by non-rebreather and was still having saturations. She was placed on CPAP by EMS 1 was transported to [facility]. Patient was alert while on CPAP and was transition to BiPAP in the ER. Vitals were stable WBC count was 7.8 C was anemic with hemoglobin of 7.2 she does have history of chronic anemia. Hemoccult test in the ER with did the exam was negative. She denied any active bleeding. Creatinine was 1.4 with mild metabolic acidosis on labs lactic acid initially was elevated at 2.9. Platelet counts were 69,000. BNP was elevated at 3470. UA at few WBC and RBC with some casts. Nasal MRSA swab was not detected. ABG was 7.3 09/24/1982/emeli. Chest x-ray showed left-sided predominant diffuse interstitial pattern with some additional patchy ground-glass opacities in the left lung which could represent asymmetric pulmonary edema and/or pneumonia. Was admitted for hypoxia with likely COPD exacerbation/pneumonia and and IV antibiotics were started. Her hemoglobin dropped down to 6.2 received PRBC transfusion. Hematology-Oncology and GI has been consulted. Hypoxic respiratory failure likely pneumonia/COPD exacerbation on steroid and IV antibiotics. Procalcitonin is low at 0.1. On p.o. prednisone and ceftriaxone azithromycin which will be continued. CKD stage 3 Pancytopenia with Chronic anemia transfused PRBC hemoglobin to 10. No signs of bleeding. Also has chronic thrombocytopenia. Ferritin elevated at 13 20. Iron saturation 28% iron normal at 52 vitamin B12 normal. Folate was normal. TSH normal Status post EGD which was normal and sigmoidoscopy with findings of multiple diverticula in left colon doubt any active bleeding. Rheumatoid arthritis not on any meds GERD Hypertension DVT prophylaxis: SCDs to thrombocytopenia Subjective Date/time seen: 10/12/23 12:58 Interval history: No overnight events. Feeling better. Still has some cough. Remains on 3 L oxygen. Discussed with the nursing staff. Review of Systems Review of Systems: All systems reviewed & are unremarkable except as noted in HPI and below Exam Narrative: APPEARANCE: Well appearing, no pain, no distress, well-nourished. HEAD: normocephalic, atraumatic. EYES: PERRLA/EOMI, conjunctivae clear. NOSE: Normal no drainage NECK: Supple. No adenopathy, no masses. RESPIRATORY:? Coarse breath sound bilaterally diminished breath sound on left side mild rhonchi CARDIOVASCULAR: Regular rate and rhythm without murmurs rubs or gallops. ABDOMINAL: Soft, nontender, nondistended, normal bowel sounds MUSCULOSKELETAL: Moves all extremities. Strength/ROM intact, No edema, No calf tenderness. NEURO: Alert. Cranial nerves II through XII intact.? Grossly intact SKIN: Warm, dry. Normal Color Objective Data Vital Signs Vital Signs: Vital Signs - 24 hr 10/11/23 13:18 10/11/23 13:25 10/11/23 13:26 Temperature Pulse Rate 88 82 Respiratory Rate 20 20 Blood Pressure Pulse Oximetry 97 Oxygen Delivery Nasal Cannula Oxygen Flow Rate 1 Fraction of Inspired Oxygen 10/11/23 13:53 10/11/23 14:30 10/11/23 15:50 Temperature 97.8 F 98.2 F Pulse Rate 92 94 Respiratory Rate 16 18 Blood Pressure 127/97 H 140/67 Pulse Oximetry 98 95 Oxygen Delivery Nasal Cannula Oxygen Flow Rate 1 Fraction of Inspired Oxygen 10/11/23 19:46 10/11/23 20:02 10/11/23 20:48 Temperature 98.9 F
[2023-10-12] MEDS: MELATONIN 5 MG TABLET PO (21:33)
[2023-10-13] VITALS (12 sets, daily range): BP systolic 139–158; BP diastolic 59–87; PULSE 70–91; RESP 18–20; TEMP 36.4–36.6; O2SAT 92–99
[2023-10-13] MEDS: traMADol HCL (*CRX) 50 MG TABLET PO ×3 (05:24→18:22)
[2023-10-13 06:27] LABS: Basophils Percent Auto 0.4 % (0.2-1.2); Hematocrit 31.4 % (37.0-47.0); Hemoglobin 10.3 g/dL (12.0-15.0); Immature Granulocyte Absolute 0.03 K/mm3 (0.00-0.031); Immature Granulocyte Percent A 1.1 % (0-0.5); Immature Platelet Fraction Pct 10.3 % (0.9-11.2); Lymphocytes Absolute Auto 0.46 K/mm3 (0.9-3.2); Lymphocytes Percent Auto 16.6 % (18.3-44.2); Mean Corpuscular HGB Conc 32.8 g/dl (32-36); Mean Corpuscular Hemoglobin 29.6 pg (26-34); Mean Corpuscular Volume 90.2 fl (80-100); Mean Platelet Volume 11.7 fl (7.4-10.4); Monocytes Absolute Auto 0.7 K/mm3 (0.1-0.6); Monocytes Percent Auto 25.6 % (2.6-8.5); Neutrophils Absolute Auto 1.6 K/mm3 (1.3-6.7); Neutrophils Percent Auto 56.3 % (45.5-73.1); Platelet Count Result 62 k/mm3 (150-375); Red Blood Count 3.48 M/mm3 (4.2-5.4); White Blood Count 2.8 K/mm3 (4.5-10.0)
[2023-10-13 06:33] LABS: Alanine Aminotransferase 10 U/L (6-35); Alkaline Phosphatase 93 U/L (38-126); Anion Gap 10 mmol/L (4-12); Aspartate Amino Transferase 15 U/L (14-36); Bilirubin,Total 0.8 mg/dL (0.2-1.3); Blood Urea Nitrogen 25 mg/dL (7-17); Calcium 8.2 mg/dL (8.4-10.2); Carbon Dioxide 19 mmol/L (22-30); Chloride 102 mmol/L (98-107); Estimated CRCL calculation 27 ml/min; Estimated Glomerular Filt Rate 48; Glucose 95 mg/dL (65-110); Magnesium 1.7 mg/dL (1.6-2.3); Potassium 3.8 mmol/L (3.4-5.0); Sodium 131 mmol/L (137-145)
[2023-10-13 07:42] LABS: Anisocytosis 2+; Platelet Estimate Decreased (Adequate); Poikilocytosis 1+; Schistocytes 1+
[2023-10-13] MEDS: IPRATROPIUM 0.5 MG/ALBUTEROL SULFATE 2.5 MG AMPUL.NEB 3 ML INHALATION ×3 (07:59→21:08)
[2023-10-13] MEDS: FLUTICASONE PROP 110 MCG INHALER 12 GM (*SP) 2 PUFF INHALATION ×2 (08:04→21:17)
[2023-10-13] MEDS: AZITHROMYCIN 500 MG/NS 250 ML 500 MG/250 ML BAG 250 MG IVPB (08:57)
[2023-10-13] MEDS: predniSONE 20 MG TABLET 40 MG PO (08:58)
[2023-10-13] MEDS: FAMOTIDINE 20 MG TABLET PO (08:58)
[2023-10-13] MEDS: FOLIC ACID 1 MG TABLET PO (08:58)
[2023-10-13] MEDS: ATORVASTATIN 40 MG TABLET PO (08:58)
[2023-10-13] MEDS: lisinopriL 20 MG TABLET 40 MG PO (08:58)
[2023-10-13] MEDS: ASPIRIN 81 MG CHEWABLE TABLET PO (08:58)
[2023-10-13] MEDS: PANTOPRAZOLE 40 MG TABLET PO ×2 (08:58→20:51)
[2023-10-13] MEDS: TIZANIDINE HCL 2 MG TABLET PO (08:58)
--- NOTE | 2023-10-13 12:33 | PM.IMPN ---
Progress Note: A&P Assessment and Plan (1) Sepsis: Code(s): A41.9 - Sepsis, unspecified organism Status: Acute (2) Shortness of breath: Code(s): R06.02 - Shortness of breath Status: Acute (3) Pneumonia: Code(s): J18.9 - Pneumonia, unspecified organism Status: Acute (4) Anemia: Code(s): D64.9 - Anemia, unspecified Status: Acute Plan 69-year-old female presents to the ED for worsening shortness of breath. Patient has history of COPD. Found to be in respiratory distress and hypoxia the nursing facility. Placed on 5 L by non-rebreather and was still having saturations. She was placed on CPAP by EMS 1 was transported to [facility]. Patient was alert while on CPAP and was transition to BiPAP in the ER. Vitals were stable WBC count was 7.8 C was anemic with hemoglobin of 7.2 she does have history of chronic anemia. Hemoccult test in the ER with did the exam was negative. She denied any active bleeding. Creatinine was 1.4 with mild metabolic acidosis on labs lactic acid initially was elevated at 2.9. Platelet counts were 69,000. BNP was elevated at 3470. UA at few WBC and RBC with some casts. Nasal MRSA swab was not detected. ABG was 7.3 09/24/1982/emeli. Chest x-ray showed left-sided predominant diffuse interstitial pattern with some additional patchy ground-glass opacities in the left lung which could represent asymmetric pulmonary edema and/or pneumonia. Was admitted for hypoxia with likely COPD exacerbation/pneumonia and and IV antibiotics were started. Her hemoglobin dropped down to 6.2 received PRBC transfusion. Hematology-Oncology and GI has been consulted. Hypoxic respiratory failure likely pneumonia/COPD exacerbation on steroid and IV antibiotics. Procalcitonin is low at 0.1. On p.o. prednisone and ceftriaxone azithromycin which will be continued. CKD stage 3 Pancytopenia with Chronic anemia transfused PRBC hemoglobin to 10. No signs of bleeding. Also has chronic thrombocytopenia. Ferritin elevated at 13 20. Iron saturation 28% iron normal at 52 vitamin B12 normal. Folate was normal. TSH normal Status post EGD which was normal and sigmoidoscopy with findings of multiple diverticula in left colon without any active bleeding. Abdominal ultrasound with no hepatosplenomegaly Rheumatoid arthritis not on any meds GERD Hypertension DVT prophylaxis: SCDs to thrombocytopenia Subjective Date/time seen: 10/13/23 12:33 Interval history: Feeling well. No new complaints. Oxygen requirement has lowered down to 1 L. Review of Systems Review of Systems: All systems reviewed & are unremarkable except as noted in HPI and below Exam Narrative: APPEARANCE: Well appearing, no pain, no distress, well-nourished. HEAD: normocephalic, atraumatic. EYES: PERRLA/EOMI, conjunctivae clear. NOSE: Normal no drainage NECK: Supple. No adenopathy, no masses. RESPIRATORY:? Coarse breath sound bilaterally diminished breath sound on left side mild rhonchi CARDIOVASCULAR: Regular rate and rhythm without murmurs rubs or gallops. ABDOMINAL: Soft, nontender, nondistended, normal bowel sounds MUSCULOSKELETAL: Moves all extremities. Strength/ROM intact, No edema, No calf tenderness. NEURO: Alert. Cranial nerves II through XII intact.? Grossly intact SKIN: Warm, dry. Normal Color Objective Data Vital Signs Vital Signs: Vital Signs - 24 hr 10/12/23 13:00 10/12/23 13:10 10/12/23 14:00 Temperature 97.9 F Pulse Rate 82 80 77 Respiratory Rate 18 18 16 Blood Pressure 107/55 L Pulse Oximetry 100 Oxygen Delivery Oxygen Flow Rate 10/12/23 20:00 10/12/23 20:00 10/12/23 20:11 Temperature Pulse Rate 83 83 81 Respiratory Rate 18 18 Blood Pressure Pulse Oximetry 97 Oxygen Delivery Nasal Cannula Oxygen Flow Rate 3 10/12/23 21:48 10/12/23 20:00 10/13/23 06:00 Temperature 98.4 F 98 F Pulse Rate 86 88 Respiratory Rate 18 18 Blood Pressure 167/78 H
[2023-10-13] MEDS: MELATONIN 5 MG TABLET PO (20:51)
[2023-10-14] VITALS (9 sets, daily range): BP systolic 144–164; BP diastolic 70–73; PULSE 77–88; RESP 16–18; TEMP 36–36.4; O2SAT 93–100
[2023-10-14] MEDS: IPRATROPIUM 0.5 MG/ALBUTEROL SULFATE 2.5 MG AMPUL.NEB 3 ML INHALATION ×3 (02:01→13:44)
[2023-10-14] MEDS: traMADol HCL (*CRX) 50 MG TABLET PO ×2 (05:24→14:06)
[2023-10-14 06:15] LABS: Hemoglobin 10.2 g/dL (12.0-15.0); Immature Granulocyte Absolute 0.03 K/mm3 (0.00-0.031); Immature Granulocyte Percent A 1.1 % (0-0.5); Immature Platelet Fraction Pct 9.7 % (0.9-11.2); Lymphocytes Absolute Auto 0.48 K/mm3 (0.9-3.2); Lymphocytes Percent Auto 18.1 % (18.3-44.2); Mean Corpuscular HGB Conc 32.9 g/dl (32-36); Mean Corpuscular Hemoglobin 29.8 pg (26-34); Mean Corpuscular Volume 90.6 fl (80-100); Mean Platelet Volume 10.6 fl (7.4-10.4); Monocytes Absolute Auto 0.8 K/mm3 (0.1-0.6); Monocytes Percent Auto 31.7 % (2.6-8.5); Neutrophils Absolute Auto 1.3 K/mm3 (1.3-6.7); Neutrophils Percent Auto 49.1 % (45.5-73.1); Platelet Count Result 60 k/mm3 (150-375); Red Blood Count 3.42 M/mm3 (4.2-5.4); White Blood Count 2.7 K/mm3 (4.5-10.0)
[2023-10-14 06:25] LABS: Alanine Aminotransferase 9 U/L (6-35); Albumin Level 3.9 g/dL (3.5-5.1); Alkaline Phosphatase 88 U/L (38-126); Anion Gap 9 mmol/L (4-12); Aspartate Amino Transferase 14 U/L (14-36); Bilirubin,Total 0.8 mg/dL (0.2-1.3); Blood Urea Nitrogen 23 mg/dL (7-17); Calcium 8.4 mg/dL (8.4-10.2); Carbon Dioxide 21 mmol/L (22-30); Chloride 104 mmol/L (98-107); Estimated CRCL calculation 27 ml/min; Estimated Glomerular Filt Rate 48; Glucose 84 mg/dL (65-110); Magnesium 1.8 mg/dL (1.6-2.3); Potassium 3.5 mmol/L (3.4-5.0); Sodium 134 mmol/L (137-145)
[2023-10-14 06:59] LABS: Anisocytosis 1+; Platelet Estimate Decreased (Adequate); Poikilocytosis 1+; Schistocytes 1+
[2023-10-14] MEDS: FLUTICASONE PROP 110 MCG INHALER 12 GM (*SP) 2 PUFF INHALATION (07:55)
[2023-10-14] MEDS: AZITHROMYCIN 500 MG/NS 250 ML 500 MG/250 ML BAG 250 MG IVPB (08:53)
[2023-10-14] MEDS: lisinopriL 20 MG TABLET 40 MG PO (08:54)
[2023-10-14] MEDS: TIZANIDINE HCL 2 MG TABLET PO (08:54)
[2023-10-14] MEDS: ASPIRIN 81 MG CHEWABLE TABLET PO (08:54)
[2023-10-14] MEDS: FOLIC ACID 1 MG TABLET PO (08:54)
[2023-10-14] MEDS: PANTOPRAZOLE 40 MG TABLET PO (08:54)
[2023-10-14] MEDS: predniSONE 20 MG TABLET 40 MG PO (08:54)
[2023-10-14] MEDS: FAMOTIDINE 20 MG TABLET PO (08:54)
[2023-10-14] MEDS: ATORVASTATIN 40 MG TABLET PO (08:54)
--- NOTE | 2023-10-14 11:24 | PM.DS ---
DS: Admitting Diagnosis Discharge Date 10/14/2023 Admitting Diagnosis Shortness of breath DS: Discharge Diagnosis Discharge Diagnosis (1) Sepsis: Code(s): A41.9 - Sepsis, unspecified organism Status: Acute (2) Shortness of breath: Code(s): R06.02 - Shortness of breath Status: Acute (3) Pneumonia: Code(s): J18.9 - Pneumonia, unspecified organism Status: Acute (4) Anemia: Code(s): D64.9 - Anemia, unspecified Status: Acute DS: Summary Hospital Course Hospital Course: 69-year-old female presents to the ED for worsening shortness of breath.? Patient has history of COPD.? Found to be in respiratory distress and hypoxia the nursing facility.? Placed on 5 L by non-rebreather and was still having saturations.? She was placed on CPAP by EMS 1 was transported to [facility].? Patient was alert while on CPAP and was transition to BiPAP in the ER. Vitals were stable WBC count was 7.8 C was anemic with hemoglobin of 7.2 she does have history of chronic anemia.? Hemoccult test in the ER with did the exam was negative.? She denied any active bleeding.? Creatinine was 1.4 with mild metabolic acidosis on labs lactic acid initially was elevated at 2.9.? Platelet counts were 69,000. BNP was elevated at 3470.? UA at few WBC and RBC with some casts.? Nasal MRSA swab was not detected.? ABG was 7.34/30/83/16.? Chest x-ray showed left-sided predominant diffuse interstitial pattern with some additional patchy ground-glass opacities in the left lung which could represent asymmetric pulmonary edema and/or pneumonia.? Was admitted for hypoxia with likely COPD exacerbation/pneumonia and and IV antibiotics were started.? Her hemoglobin dropped down to 6.2 received PRBC transfusion.? Hematology-Oncology and GI has been consulted. Hypoxic respiratory failure likely pneumonia/COPD exacerbation on steroid and IV antibiotics.? Procalcitonin is low at 0.1.? On p.o. prednisone and ceftriaxone azithromycin which will be continued. She completed 5 days course of prednisone. Will continue on antibiotics oral at discharge. She was off oxygen by the time of discharge. CKD stage 3 which remains stable Pancytopenia with Chronic anemia transfused PRBC hemoglobin to 10.? No signs of bleeding.? Also had thrombocytopenia. This is new as compared to previous lab in 2021 as I can see in the system.? Ferritin elevated at 1320.? Iron saturation 28% iron normal at 52 vitamin B12 normal.? Folate was normal.? TSH normal Status post EGD which was normal and sigmoidoscopy with findings of multiple diverticula in left colon without any active bleeding.? Abdominal ultrasound with no hepatosplenomegaly. She did have history of GI bleed in the past H&H remained stable with transfusion. To follow-up oncology as an outpatient basis Rheumatoid arthritis not on any meds GERD Hypertension DVT prophylaxis:? SCDs to thrombocytopenia Time Spent with Patient Time attestation: Total time spent providing and/or coordinating discharge services: 35 minutes Exam Narrative: APPEARANCE: Well appearing, no pain, no distress, well-nourished. HEAD: normocephalic, atraumatic. EYES: PERRLA/EOMI, conjunctivae clear. NOSE: Normal no drainage NECK: Supple. No adenopathy, no masses. RESPIRATORY:? Coarse breath sound bilaterally diminished breath sound on left side mild rhonchi CARDIOVASCULAR: Regular rate and rhythm without murmurs rubs or gallops. ABDOMINAL: Soft, nontender, nondistended, normal bowel sounds MUSCULOSKELETAL: Moves all extremities. Strength/ROM intact, No edema, No calf tenderness. NEURO: Alert. Cranial nerves II through XII intact.? Grossly intact SKIN: Warm, dry. Normal Color DS: Data Data Completed and Pending Completed studies during hospitalization: Exam Type: ? ? CA echo doppler color flow Study Info Indications ?? ? - Elevated? BNP Complete two-dimensional, color flow and Doppler transthoracic echocardiogram is performed. [facility]
--- NOTE | 2023-10-14 13:12 | PCPTNOTE ---
Patient has discharge orders and is going back to [facility].
[2023-10-14 14:12] LABS: SARS-CoV-2 RNA PCR Negative (Negative)
--- NOTE | 2023-10-14 16:50 | PC.NURSE ---
[id number] Report was given to Glory at [id number]
[2023-10-17 19:29] LABS: Platelet Antibody, Direct NEGATIVE (NEGATIVE)
== END 2023-10-14 14:40 | DRG 871 ==
LOC: ANHED 13:49 → ANHIMU 14:42 → ANH3MEDSUR 10-11 14:23
PROVIDERS: Internal Medicine Gastroenterology; Internal Medicine Hematology & Oncology; Student in an Organized Health Care Education/Training Program; Admitting Provider Family Medicine; Emergency Provider Emergency Medicine; Visit Provider Internal Medicine
PROC: 0DJ08ZZ Inspection of Upper Intestinal Tract, Via Natural or Artificial Opening Endoscopic (ICD-10-PCS; CPT 43235; principal; 2023-10-12 14:30)
DX: A41.9 Sepsis, unspecified organism (principal); J18.9 Pneumonia, unspecified organism; J96.01 Acute respiratory failure with hypoxia; J44.0 Chronic obstructive pulmonary disease with (acute) lower respiratory infection; D61.818 Other pancytopenia; E87.21 Acute metabolic acidosis; J44.1 Chronic obstructive pulmonary disease with (acute) exacerbation; I12.9 Hypertensive chronic kidney disease with stage 1 through stage 4 chronic kidney disease, or unspecified chronic kidney disease; N18.30 Chronic kidney disease, stage 3 unspecified; K57.30 Diverticulosis of large intestine without perforation or abscess without bleeding; D64.9 Anemia, unspecified; K21.9 Gastro-esophageal reflux disease without esophagitis; M06.9 Rheumatoid arthritis, unspecified; Z20.822 Contact with and (suspected) exposure to COVID-19; Z87.891 Personal history of nicotine dependence
CPT/HCPCS: 36415; 36430; 36600; 71045; 76700; 80053; 81001; 82607; 82728; 82746; 82805; 83540; 83550; 83605; 83735; 83880; 84145; 84443; 85014; 85018; 85025; 85027; 85055; 85610; 85730; 86023; 86850; 86900; 86901; 86923; 87040; 87086; 87635; 87641; 93306; 94002; 94003; 94640; 96365; 96367; 97161; 97166; 97530; 97535; 99285; A9270; G0378; J0456; J0696; J2704; J7120; J7512; P9016; Q5106